=== PATIENT | male | born 1945 | race Caucasian/White ===

== ENCOUNTER 2016-08-13 11:34 | Inpatient (IN) | payer MEDICARE, OTHER ==
[~2016-08-13] VITALS: Ht 193 cm; Wt 89.1 kg
--- NOTE | ~2016-08-13 | HP ---
ADMIT: 08/13/2016 RM/LOC: 526 [facility] MR#: [id number] [address] [address] [place] [address] Pre-OP History and Physical SEX: M AGE: 70 : 1945 DATE OF SERVICE: SUBJECTIVE: The patient, Beny Velásquez, is a 70-year-old white male, who is status post right hip trochanteric femoral nailing for comminuted intertrochanteric hip fracture. He went on to have uneventful healing, but his TFN blade is migrated proximally through his femoral head and to his acetabulum, best thing to do is a removal of the hardware. I told the patient that there was a possibility that he will wind up to have some type of bipolar prosthesis if he has any type of a fracture removing this or if the fracture is ununited requiring this. OBJECTIVE: Shows the patient has well-healed incisions laterally. He has little pain in the groin with motion of the hip. IMAGING: X-rays show the patient has a TFN abundant callous formation medially, but his trochanteric femoral blade has migrated into his acetabulum. ASSESSMENT AND PLAN: Right hip TFN hardware migration. At this point in time, I again will plan hardware removal. The patient understands the risks and benefits of the surgical intervention and desires to proceed. Again, we talked about the possibility for placement should his hip re-fracture or we have problems getting his hardware up, he understands this. Samuel Lambert MD/ flora JOB #: [id number] CC: Samuel Lambert, Attending Physician Shaquille Briones, Family Physician
--- NOTE | ~2016-08-13 | OR ---
ADMIT: 08/13/2016 RM/LOC: 526 [facility] MR#: [id number] [address] [address] [place] [address] Operative/Delivery Room Report SEX: M AGE: 70 : 1945 SURGERY DATE: 08/14/2016 SURGEON: Samuel Lambert MD PREOPERATIVE DIAGNOSIS: Right hip, status post TFN with hardware loosening. POSTOPERATIVE DIAGNOSIS: Right hip, status post TFN with hardware loosening. PROCEDURE PERFORMED: Right hip TFN and hardware removal. ELECTRO TECH: Parish Rdz PA-C. ANESTHESIA: General. ESTIMATED BLOOD LOSS: 250 mL. FLUIDS: Per anesthetic record. COMPLICATIONS: None. DRAINS: No drains. TOURNIQUET TIME: None. CONDITION: The patient returned to recovery room in fair condition. INDICATION: The patient is status post TFN nailing. He has gone on to healing but his TFN blade migrated through the center of the femoral head into the acetabulum. We needed to remove that blade. The patient understood the risks and benefits of the procedure, desired to proceed. DESCRIPTION OF THE PROCEDURE: The patient was taken to the OR, transferred to the OR table, underwent general anesthesia, moved in the left lateral decubitus position. All bony prominences were well padded. Right hip was prepped and draped in the usual sterile fashion. I made a 12 inch incision, incorporating my two incisions on the TFN through the skin and subcutaneous tissue. Coagulated bleeders with the Bovie. The adductor and the IT band split in line with the skin incision. I then located my TFN posterolateral blade hole by splitting the vastus lateralis fascia with the Bovie in line with the skin incision and splitting the vastus lateralis in line with its fibers and then elevating the posterior vastus lateralis off the femur until I found my hole. I removed the fibrinous debris and then could see my TFN and interlocking blade. I then split abductor tendons on the greater trochanter using a Bovie down to the top part of the TFN. I screwed in an extraction handle under the end of the TFN and then through that, used my screwdriver to loosen the proximal set screw. I then placed an extraction handle by screwing it into the TFN blade along the lateral cortex. I then removed the TFN blade. Once general assistant was done, I elevated the vastus lateralis off the lateral ADMIT: 08/13/2016 RM/LOC: 526 [facility] MR#: [id number] [address] [place] [address] Operative/Delivery Room Report SEX: M AGE: 70 : 1945 femoral cortex and found my distal interlocking screw and removed this interlocking screw with a star screwdriver. I then was able to remove my TFN kelly proximally. I palpated along the anterior shaft of the canal everything appeared to be healing nicely. I then thoroughly irrigated this area out with bacitracin solution. I closed the vastus lateralis fascia using #1 Vicryl in pewtiq-sy-pukyu interrupted fashion. I closed the abductor tendon musculature using #1 Vicryl in [id number]-[id number]-brzwn interrupted fashion. Abductor fascia Closed using #1 Vicryl. IT band closed using #1 Vicryl. Subcutaneous tissue closed in layers using 2-0 Vicryl and skin closed using isela. Wounds were washed, dried, dressed with sterile Adaptic, 4x4s, ABD, and Medipore tape. Drapes removed. Patient transferred back to the recovery room in fair condition. Samuel Lambert MD/ flora JOB #: [id number] CC: Samuel Lambert, Attending Physician Shaquille Briones, Family Physician
[~2016-08-13 11:34] MED LIST: BENADRYL-DPS25 MG PO; COGENTIN DPS1 MG PO; DULCOLAX-DPS10 MG PR; FEOSOL-DPS325 MG PO; FLOMAX DPS0.4 MG PO; KLONOPIN DPS0.5 MG PO; LECITHIN400 MG PO; MAALOX DPS30 ML PO; MILK OF MAGNESI10 ML PO; PEPCID DPS20 MG PO; PROZAC DPS20 MG PO; SENOKOT S1 TAB PO; SEROQUEL DPS100 MG PO; SPORTS CREAM85 GM TP; THERAPEUTIC MUL1 TAB PO; TYLENOL DPS325 MG PO; TYLENOL EXTRA500 M1 PO; ULTRAM DPS50 MG PO; UROXATRAL10 MG PO; VITAMIN D31000 UNIT PO; [UNRECOGNIZED DRUG - OTHER] PO
[2016-08-17] MEDS ORDERED: FOLTX TABLET1 EACH PO (20:25)
[2016-08-17] MEDS ORDERED: FEOSOL-DPS325 MG PO (20:25)
[2016-08-17] MEDS ORDERED: KLONOPIN DPS0.5 MG PO ×2 (20:25→20:28)
[2016-08-17] MEDS ORDERED: PROZAC DPS20 MG PO (20:26)
[2016-08-17] MEDS ORDERED: MIRALAX PACKET17 GM PO (20:26)
[2016-08-17] MEDS ORDERED: SEROQUEL DPS100 MG PO (20:26)
[2016-08-17] MEDS ORDERED: THERA1 EACH PO (20:26)
[2016-08-17] MEDS ORDERED: PEPCID DPS20 MG PO (20:26)
[2016-08-17] MEDS ORDERED: TYLENOL EXTRA500 M1 PO (20:27)
[2016-08-17] MEDS ORDERED: UROXATRAL10 MG PO (20:27)
[2016-08-17] MEDS ORDERED: BENADRYL-DPS25 MG PO (20:27)
[2016-08-17] MEDS ORDERED: ULTRAM DPS50 MG (20:27)
[2016-08-17] MEDS ORDERED: VITAMIN D31000 UNIT PO (20:27)
[2016-08-17] MEDS ORDERED: NORCO 7.5-3251 EACH PO (20:28)
[2016-08-17] MEDS ORDERED: NORCO 10-325 T1 EACH PO (20:28)
[2016-08-17] MEDS ORDERED: COMPAZINE DPS5 MG PO (20:28)
[2016-08-17] MEDS ORDERED: NORCO 5-325 TA1 EACH PO (20:28)
[2016-08-17] MEDS ORDERED: SENOKOT S1 TAB PO (20:29)
[2016-08-17] MEDS ORDERED: MAALOX DPS30 ML PO (20:29)
[2016-08-17] MEDS ORDERED: MILK OF MAGNESI10 ML PO (20:29)
[2016-08-17] MEDS ORDERED: TYLENOL DPS325 MG PO (20:30)
--- NOTE | 2016-08-20 15:54 | HP ---
ADMIT: 08/13/2016 RM/LOC: 526 [facility] MR#: [id number] [address] [address] [place] [address] History and Physical SEX: M AGE: 70 : 1945 DATE OF SERVICE: HISTORY OF PRESENT ILLNESS: The patient was seen over in the Orthopedic Clinic today for general followup of a right hip trochanteric femoral nailing performed by Dr. Lambert on 05/18/2016. After getting x-rays of the hip, the x- ray showed the helical blade from the TFN was migrating medially through the head of the femur into the pelvis, and at that point, we had to decide to get him admitted to remove the hardware from that right hip fracture. The TFN was stabilizing, had already healed, and feels fine, but the hardware does need to come out due to the plate going into the joint up in to the pelvis. PAST MEDICAL HISTORY: History of bipolar, BPH, and hip fracture. PAST SURGICAL HISTORY: Right hip nailing on 05/17/2016. CURRENT MEDICATIONS: 1. Dulcolax. 2. Tramadol. 3. Seroquel. 4. Pepcid. 5. Clonazepam. 6. Klonopin. 7. Foltx. 8. Tylenol. 9. Prozac. 10.Vitamin D3, 1000. ALLERGIES: NO KNOWN ALLERGIES. SOCIAL HISTORY: He is to be a smoker, one pack per day. PHYSICAL EXAMINATION: GENERAL: The patient is healthy appearing, alert and oriented. Appears to be in no distress. MUSCULOSKELETAL: The patient is in the wheelchair. He has point tenderness along the medial side of the hip. He has full range of motion of the knee. Internal and external rotation of the hip causes pain, as well as hip flexion and extension is very limited due to guarding tightness. Right lower extremity, neurovascularly intact. IMAGING: Three views done over at the [facility] shows the femur fracture has healed with a lot of callus formed around it. The trochanteric femoral nail is in place. The vertical stem is going down the femur, but the helical blade has gone through the femoral head into the hip joint, and is now intra-articular to the hip. No other bony abnormalities ADMIT: 08/13/2016 RM/LOC: 526 [facility] MR#: [id number] [address] [address] [facility] [place] [address] History and Physical SEX: M AGE: 70 : 1945 are noted. ASSESSMENT: Status post right trochanteric femoral nailing. PLAN: The idea right now is to take the patient down to the OR and remove the hardware TFN due to the intra-articular movement of the helical blade from the TFN. Surgical procedure was explained to the patient. Possible risks, benefits, and complications of the procedures were outlined and explained as well to the patient, they understood, and they would like to go ahead with the surgery. Right now, Dr. Lambert is planning on hardware removal from the right hip tomorrow 08/14/2016, and any other questions and concerns were answered to the patient and family members present. DANG Vidal / Samuel Lambert MD / flora JOB #: [id number] CC: Samuel Lambert, Attending Physician Shaquille Briones, Family Physician
--- NOTE | 2016-10-01 15:26 | DS ---
ADMIT: 08/13/2016 RM/LOC: 526 [facility] MR#: [id number] [facility] [address] [place] [address] [place] [address] General Discharge Summary SEX: M AGE: 70 : 1945 ADMISSION DATE: 08/13/2016 DISCHARGE DATE: 08/16/2016 REASON FOR ADMISSION: Right hip TFN hardware removal status post right hip TFN on 05/18/2016 due to migration of the helical blade through the head of the femur into the pelvis. PREOPERATIVE DIAGNOSIS: Right hip status post TFN with hardware loosening. POSTOPERATIVE DIAGNOSIS: Right hip status post TFN with hardware loosening. PROCEDURE PERFORMED: Right hip TFN hardware removal. SURGEON: Samuel Lambert MD ART COORDINATOR: Parish Rdz PA-C ANESTHESIA: General. ESTIMATED BLOOD LOSS: 250 mL. COMPLICATIONS: None. ACTIVE MEDICAL PROBLEMS: History of bipolar, BPH, and hip fracture. HOSPITAL COURSE: The patient was admitted on 08/13/2016 for a right TFN hardware removal, which was done successfully without any complications on 08/14/2016. The patient tolerated the procedure well. Postoperatively, he did well with pain control with just some soreness over the incision site. He did suffer from some acute blood loss anemia. His hemoglobin dropped to 9.8 on 08/16/2016, but he remained hemodynamically stable and did not require blood transfusion. By postoperative day 2, he was safe and stable and doing well with physical therapy. He is ready for discharge to a correction facility with plans to follow up in 2 weeks. DISCHARGE MEDICATIONS: 1. Feosol DPS 325 mg daily. 2. Foltx DPS 1 tablet daily. 3. Klonopin 0.5 mg 3 times a day. 4. MiraLax 17 g daily. 5. Pepcid 20 mg twice a day. 6. Prozac 20 mg daily. 7. Seroquel 100 mg daily. ADMIT: 08/13/2016 RM/LOC: 526 [facility] MR#: [id number] [address] [address] [place] [address] General Discharge Summary SEX: M AGE: 70 : 1945 8. Tylenol 500 mg 3 times a day. 9. Ultram 50 mg 3 times a day. 10.Uroxatral 10 mg daily. 11.Vitamin D 1000 units daily. 12.Benadryl 25 mg every 6 hours. 13.Compazine 5 mg every 6 hours. 14.Dulcolax 10 mg daily. DISCHARGE INSTRUCTIONS: The patient was discharged to correction facility with plans for outpatient physical therapy exercises for his right lower extremity. Follow up in the orthopedic office in 2 weeks for wound check, in 6 weeks with x-ray. Follow up with primary care as directed. DANG Ocampo / Samuel Lambert MD / flora JOB #: [id number] CC: Samuel Lambert MD, Attending Physician Shaquille Briones DO, Family Physician
== END 2016-08-16 13:00 | DRG 498 ==
LOC: WOR 11:34 → 5MS 11:34
PROVIDERS: ADMIT Orthopaedic Surgery
PROC: 0QP604Z Removal of Internal Fixation Device from Right Upper Femur, Open Approach (ICD-10-PCS; principal; 2016-08-14)
DX: T84.328A Displacement of other bone devices, implants and grafts, initial encounter (principal); D62 Acute posthemorrhagic anemia; F31.9 Bipolar disorder, unspecified; N40.0 Benign prostatic hyperplasia without lower urinary tract symptoms; F17.210 Nicotine dependence, cigarettes, uncomplicated